=== PATIENT | female | born 1985 | race American Indian/Alaskan Native ===

== ENCOUNTER 2018-01-07 23:10 | Outpatient (CLI) | payer MEDICAID ==
[2018-01-08] MEDS ORDERED: LACTATED RINGERS 500 ML IV ONE (00:01)
[2018-01-08] MEDS ORDERED: LACTATED RINGERS 1,000 ML IV ONE (00:02)
[2018-01-08 01:18] VITALS: BP 113/64
[2018-01-08 01:56] LABS: Amorphous Crystals,Urine Few; Bilirubin,Urine NEG (Negative); Blood,Urine NEG (Negative); Color,Urine Straw (Yellow); Protein,Urine <15 mg/dL mg/dL (Negative); Urobilinogen,Urine < 2.0 mg/dL (<2.0); WBC,Urine < 1.0 /HPF (0.0-6.0)
[2018-01-08] MEDS ORDERED: VISTARIL PO ONE (03:02)
== END 2018-01-08 03:30 | disposition home or self-care (01) ==
LOC: TRG 23:10
PROVIDERS: ATTEND Obstetrics & Gynecology
DX: O26.893 Other specified pregnancy related conditions, third trimester (principal); Z3A.38 38 weeks gestation of pregnancy; R10.2 Pelvic and perineal pain
CPT/HCPCS: 59025; 81001; 96360; J7120; Q0177

== ENCOUNTER 2022-02-21 11:24 | Emergency (ER) | payer MEDICAID ==
[2022-02-21] MEDS ORDERED: ASPIRIN 325 MG TAB PO ONE (11:48)
[2022-02-21] MEDS ORDERED: SODIUM CHLORIDE 0.9% 1000 ML 1,000 ML IV ONE (12:28)
[2022-02-21] MEDS ORDERED: KETOROLAC 30 MG/1 ML INJ IV ONE (12:40)
--- NOTE | 2022-02-21 12:45 | Emergency Department Report ---
ED Chest Pain HPI - General Chief Complaint: Chest Pain Stated Complaint: CHEST PAIN Time Seen by Provider: 02/21/22 12:25 Source: patient Mode of arrival: Stretcher Limitations: No Limitations - History of Present Illness Initial Comments: 36-year female with a past medical history of obesity presents to the hospital complaints of intermittent right-sided chest pain since yesterday. Pain described as a pressure that was constant yesterday but today is intermittent. Pain worse with movement and palpation. Associated shortness of breath and lightheadedness. Patient denies nausea, vomiting, diaphoresis, calf tenderness, leg edema, history of PE/DVT, or recent travel. Patient does have a IUD Mirena in place and does not have menstrual cycles. She denies smoking, cocaine use, and denies family history of CAD in her parents or siblings - Related Data Previous Rx's Medication Instructions Recorded Last Taken Type Ibuprofen [Motrin] 800 mg PO Q8HR PRN #20 tablet 02/21/22 Unknown Rx Allergies Allergy/AdvReac Type Severity Reaction Status Date / Time No Known Allergies Allergy Verified 02/21/22 11:47 Heart Score - HEART Score History: Slightly suspicious EKG: Normal Age: < 45 Risk factors: 1-2 risk factors Troponin: < normal limit HEART Score: 1 - EKG Read Time Time EKG Completed: 15:25 EKG Read Time: 15:30 ED Review of Systems ROS: Stated complaint: CHEST PAIN Other details as noted in HPI Comment: All other systems reviewed and negative ED Past Medical Hx - Past Medical History Hx Hypertension: No Hx Diabetes: No Hx Deep Vein Thrombosis: No Hx Renal Disease: No Hx Sickle Cell Disease: No Hx Seizures: No Hx Asthma: No Hx HIV: No - Social History Smoking Status: Former Smoker - Medications Home Medications: Home Medications Medication Instructions Recorded Confirmed Last Taken Type Ibuprofen [Motrin] 800 mg PO Q8HR PRN #20 tablet 02/21/22 Unknown Rx ED Physical Exam - General Limitations: No Limitations - Other Other exam information: General: No acute distress Head: Atraumatic Eyes: normal appearance ENT: Moist mucous membranes Neck: Normal appearance, no midline tenderness Chest: Clear to auscultation bilaterally, reproducible sternal and right anterior chest wall tenderness to palpation CV: Regular rate and rhythm Abdomen: Soft, normal bowel sounds, nontender, nondistended, no rebound or guarding Back: Normal inspection Extremity: Normal inspection, full range of motion, no calf tenderness or leg edema Neuro: Alert O x 3, no facial asymmetry, speech clear, no gross motor sensory deficit Psych: Appropriate behavior Skin: No rash ED Course Vital Signs 02/21/22 02/21/22 02/21/22 11:46 13:09 13:11 Temperature 98.0 F Pulse Rate 61 60 50 L Respiratory 18 Rate Blood Pressure Blood Pressure 92/60 110/56 [Left] O2 Sat by Pulse 98 98 Oximetry 02/21/22 02/21/22 13:30 14:00 Temperature Pulse Rate 53 L 53 L Respiratory 14 16 Rate Blood Pressure 110/57 110/71 Blood Pressure [Left] O2 Sat by Pulse 97 97 Oximetry VIMAL score - Vimal Score Age > 65: (0) No Aspirin use within the Past 7 Days: (0) No 3 or more CAD Risk Factors: (0) No 2 or more Angina events in past 24 hrs: (0) No Known CAD with more than 50% Stenosis: (0) No Elevated Cardiac Markers: (0) No ST Deviation Greater than 0.5mm: (0) No VIMAL Score: 0 ED Medical Decision Making - Lab Data Result diagrams: 02/21/22 12:55 02/21/22 12:55 Lab Results 02/21/22 02/21/22 02/21/22 Range/Units 12:55 12:55 12:55 WBC 6.1 (4.5-11.0) K/mm3 RBC 4.61 (3.65-5.03) M/mm3 Hgb 12.3 (10.1-14.3) gm/dl Hct 39.2 (30.3-42.9) % MCV 85 (79-97) fl MCH 27 L (28-32) pg MCHC 31 (30-34) % RDW 13.8 (13.2-15.2) % Plt Count 184 (140-440) K/mm3 Lymph % (Auto) 29.3 (13.4-35.0) % Faulk % (Auto) 9.5 H (0.0-7.3) % Eos % (Auto) 4.4 H (0.0-4.3) % Baso % (Auto) 0.7 (0.0-1.8) % Lymph # (Auto) 1.8 (1.2-5.4) K/mm3 Faulk # (Auto) 0.6 (0.0-0.8) K/mm3 Eos # (Auto) 0.3 (0.0-0.4) K/mm3 Baso # (Auto) 0.0 (0.0-0.1) K/mm3 Seg Neutrophils % 56.1 (40.0-70.0) % Seg Neutrophils # 3.4 (1.8-7.7) K/mm3 PT 13.4 (12.2-14.9) Sec. INR 0.92 (0.87-1.13) D-Dimer 295.67 H (0-234) ng/mlDDU Sodium 141 (137-145) mmol/L Potassium 4.1 (3.6-5.0) mmol/L Chloride 105.7 (98-107) mmol/L Carbon Dioxide 27 (22-30) mmol/L Anion Gap 12 mmol/L BUN 7 (7-17) mg/dL Creatinine 0.7 (0.6-1.2) mg/dL Estimated GFR > 60 ml/min BUN/Creatinine Ratio 10 % Glucose 88 (65-100) mg/dL Calcium 9.2 (8.4-10.2) mg/dL Total Bilirubin 0.40 (0.1-1.2) mg/dL AST 14 (5-40) units/L ALT 16 (7-56) units/L Alkaline Phosphatase 51 (35-129) units/L Troponin T < 0.010 (0.00-0.029) ng/mL Total Protein 6.8 (6.3-8.2) g/dL Albumin 4.1 (3.9-5) g/dL Albumin/Globulin Ratio 1.5 % HCG, Quant (0-4) mIU/mL Urine Color (Yellow) Urine Turbidity (Clear) Specific [place] (Man) (1.003-1.030) Ur Protein (Man) (Negative) mg/dL Ur Ketones (Man) (Negative) Urine Bilirubin (Man) (Negative) Urine WBC (Auto) (0.0-6.0) /HPF Urine RBC (Auto) (0.0-6.0) /HPF U Epithel Cells (Auto) (0-13.0) /HPF Urine RBC (Manual) (Negative) Urine Mucus /HPF Urine Opiates Screen Urine Methadone Screen Ur Barbiturates Screen Ur Phencyclidine Scrn Ur Amphetamines Screen U Benzodiazepines Scrn Urine Cocaine Screen U Marijuana (THC) Screen Drugs of Abuse Note 02/21/22 02/21/22 02/21/22 Range/Units 12:55 14:15 14:15 WBC (4.5-11.0) K/mm3 RBC (3.65-5.03) M/mm3 Hgb (10.1-14.3) gm/dl Hct (30.3-42.9) % MCV (79-97) fl MCH (28-32) pg MCHC (30-34) % RDW (13.2-15.2) % Plt Count (140-440) K/mm3 Lymph % (Auto) (13.4-35.0) % Faulk % (Auto) (0.0-7.3) % Eos % (Auto) (0.0-4.3) % Baso % (Auto) (0.0-1.8) % Lymph # (Auto) (1.2-5.4) K/mm3 Faulk # (Auto) (0.0-0.8) K/mm3 Eos # (Auto) (0.0-0.4) K/mm3 Baso # (Auto) (0.0-0.1) K/mm3 Seg Neutrophils % (40.0-70.0) % Seg Neutrophils # (1.8-7.7) K/mm3 PT (12.2-14.9) Sec. INR (0.87-1.13) D-Dimer (0-234) ng/mlDDU Sodium (137-145) mmol/L Potassium (3.6-5.0) mmol/L Chloride (98-107) mmol/L Carbon Dioxide (22-30) mmol/L Anion Gap mmol/L BUN (7-17) mg/dL Creatinine (0.6-1.2) mg/dL Estimated GFR ml/min BUN/Creatinine Ratio % Glucose (65-100) mg/dL Calcium (8.4-10.2) mg/dL Total Bilirubin (0.1-1.2) mg/dL AST (5-40) units/L ALT (7-56) units/L Alkaline Phosphatase (35-129) units/L Troponin T (0.00-0.029) ng/mL Total Protein (6.3-8.2) g/dL Albumin (3.9-5) g/dL Albumin/Globulin Ratio % HCG, Quant < 2 (0-4) mIU/mL Urine Color Straw (Yellow) Urine Turbidity Clear (Clear) Specific [place] (Man) 1.005 (1.003-1.030) Ur Protein (Man) <30 mg dl (Negative) mg/dL Ur Ketones (Man) Negative (Negative) Urine Bilirubin (Man) Negative (Negative) Urine WBC (Auto) 2.0 (0.0-6.0) /HPF Urine RBC (Auto) 1.0 (0.0-6.0) /HPF U Epithel Cells (Auto) < 1.0 (0-13.0) /HPF Urine RBC (Manual) Negative (Negative) Urine Mucus Few /HPF Urine Opiates Screen Negative Urine Methadone Screen Negative Ur Barbiturates Screen Negative Ur Phencyclidine Scrn Negative Ur Amphetamines Screen Negative U Benzodiazepines Scrn Negative Urine Cocaine Screen Negative U Marijuana (THC) Screen Negative Drugs of Abuse Note Disclamer - EKG Data -: EKG Interpreted by Mt EKG shows normal: sinus rhythm, ST-T waves (no stemi) Rate: bradycardia (55) - Radiology Data Radiology results: report reviewed CTA CHEST WITH CONTRAST INDICATION / CLINICAL INFORMATION: chest pain, IUD, mild ddimer elevation. TECHNIQUE: Axial CT images were obtained through the chest after injection of 100 cc of Omnipaque 350 IV contrast. 3 plane MIP and/or 3D reconstructions were produced. All CT scans at this location are performed using CT dose reduction for ALARA by means of automated exposure control. COMPARISON: None available. FINDINGS: PULMONARY ARTERIES: No pulmonary emboli. THORACIC AORTA: No significant abnormality. HEART: No significant abnormality. CORONARY ARTERY CALCIFICATION: None. MEDIASTINUM / JOSE: No significant abnormality. PLEURA: No pleural effusion. No pneumothorax. LUNGS: No focal infiltrate is seen. There are 3 tiny nodules which appear to be along the minor fissure on the right. Measure up to 4 mm ADDITIONAL FINDINGS: None. UPPER ABDOMEN: No acute findings. SKELETAL STRUCTURES: No significant osseous abnormality. IMPRESSION: 1. No CT evidence for pulmonary embolism. 2. Multiple incidental pulmonary nodule(s) in the right middle lobe measuring 4 x 4 mm with perifissural/subpleural characteristics. Recommendation according to Fleischner Society 2017 Guidelines: Guidelines do not apply: patient younger than 35 years. Persons under the age of 35 should not receive follow-up unless there is a known primary cancer. CHEST 1 VIEW 02/21/2022 12:26 PM INDICATION / CLINICAL INFORMATION: CHEST PAIN. COMPARISON: None available. FINDINGS: SUPPORT DEVICES: None. HEART / MEDIASTINUM: No significant abnormality. LUNGS / PLEURA: No significant pulmonary or pleural abnormality. No pneumothorax. ADDITIONAL FINDINGS: No significant additional findings. IMPRESSION: No acute abnormality. - Medical Decision Making 36-year female presents to the hospital with reproducible anterior sternal and right-sided chest tenderness on palpation. Patient has a low heart score, normal EKG with exception of bradycardia. Also patient has a troponin with atypical pain. D-dimer elevation noted. CT angiogram negative for pulmonary embolism but incidental finding of pulmonary nodule. Patient informed. Copy of CAT scan provided for outpatient follow-up. Patient will be discharged with NSAIDs for muscle skeletal chest pain. Critical Care Time: No Critical care attestation.: If time is entered above; I have spent that time in minutes in the direct care of this critically ill patient, excluding procedure time. ED Disposition Clinical Impression: Chest wall pain, Pulmonary nodule Disposition: 01 HOME / SELF CARE / HOMELESS Is pt being admited?: No Does the pt Need Aspirin: No Condition: Stable Instructions: Chest Wall Pain, [id number], Pulmonary Nodule, [id number] Additional Instructions: Take the medication as prescribed. Follow-up with your doctor or doctor/clinic provided. Return if symptoms worsen as indicated by your discharge instructions. Prescriptions: Ibuprofen [Motrin] 800 mg PO Q8HR PRN #20 tablet PRN Reason: Pain , Severe (7-10) Referrals: ALYSSA PETTIT MD [Primary Care Provider] - 3-5 Days [facility] [Provider Group] - 3-5 Days Time of Disposition: 16:13
--- NOTE | 2022-02-21 12:57 | XRay Report ---
CHEST 1 VIEW 02/21/2022 12:26 PM INDICATION / CLINICAL INFORMATION: CHEST PAIN. COMPARISON: None available. FINDINGS: SUPPORT DEVICES: None. HEART / MEDIASTINUM: No significant abnormality. LUNGS / PLEURA: No significant pulmonary or pleural abnormality. No pneumothorax. ADDITIONAL FINDINGS: No significant additional findings. IMPRESSION: No acute abnormality. Signer Name: Jacky Shah MD Signed: 02/21/2022 12:53 PM Workstation Name: [email or web address]
[2022-02-21 13:11] LABS: Basophils % (Auto) 0.7 % (0.0-1.8); Eosinophils # (Auto) 0.3 K/mm3 (0.0-0.4); Eosinophils % (Auto) 4.4 % (0.0-4.3); Hematocrit 39.2 % (30.3-42.9); Hemoglobin 12.3 gm/dl (10.1-14.3); Lymphocytes # (Auto) 1.8 K/mm3 (1.2-5.4); Lymphocytes % (Auto) 29.3 % (13.4-35.0); Mean Corpuscular HGB Conc 31 % (30-34); Mean Corpuscular Volume 85 fl (79-97); Monocytes # (Auto) 0.6 K/mm3 (0.0-0.8); Monocytes % (Auto) 9.5 % (0.0-7.3); Platelet Count 184 K/mm3 (140-440); Red Blood Count 4.61 M/mm3 (3.65-5.03); Red Cell Distribution Width 13.8 % (13.2-15.2)
[2022-02-21 13:19] LABS: INR 0.92 (0.87-1.13)
[2022-02-21 13:34] LABS: Alanine Aminotransferase 16 units/L (7-56); Albumin 4.1 g/dL (3.9-5); Blood Urea Nitrogen 7 mg/dL (7-17); Calcium 9.2 mg/dL (8.4-10.2); Hemolysis Index 4
[2022-02-21 13:37] LABS: BUN/Creatinine Ratio 10
[2022-02-21 14:16] VITALS: BP 110/71
[2022-02-21 14:33] LABS: Mucus,Urine FEW /HPF
[2022-02-21 14:38] LABS: Amphetamine Screen,Urine Negative; Benzodiazepines Screen,Urine Negative; Cannabinoid Screen,Urine Negative; Cocaine Screen,Urine Negative; Methadone Screen,Urine Negative; Opiate Screen,Urine Negative
[2022-02-21 14:39] LABS: Color,Urine Straw (Yellow)
--- NOTE | 2022-02-21 15:53 | Cat Scan Report ---
CTA CHEST WITH CONTRAST INDICATION / CLINICAL INFORMATION: chest pain, IUD, mild ddimer elevation. TECHNIQUE: Axial CT images were obtained through the chest after injection of 100 cc of Omnipaque 350 IV contrast. 3 plane MIP and/or 3D reconstructions were produced. All CT scans at this location are performed using CT dose reduction for ALARA by means of automated exposure control. COMPARISON: None available. FINDINGS: PULMONARY ARTERIES: No pulmonary emboli. THORACIC AORTA: No significant abnormality. HEART: No significant abnormality. CORONARY ARTERY CALCIFICATION: None. MEDIASTINUM / JOSE: No significant abnormality. PLEURA: No pleural effusion. No pneumothorax. LUNGS: No focal infiltrate is seen. There are 3 tiny nodules which appear to be along the minor fissu re on the right. Measure up to 4 mm ADDITIONAL FINDINGS: None. UPPER ABDOMEN: No acute findings. SKELETAL STRUCTURES: No significant osseous abnormality. IMPRESSION: 1. No CT evidence for pulmonary embolism. 2. Multiple incidental pulmonary nodule(s) in the right middle lobe measuring 4 x 4 mm with perifissu ral/subpleural characteristics. Recommendation according to Fleischner Society 2017 Guidelines: Guide lines do not apply: patient younger than 35 years. Persons under the age of 35 should not receive fol low-up unless there is a known primary cancer. Signer Name: Mariano Cabral MD Signed: 02/21/2022 3:49 PM Workstation Name: [id number]
--- NOTE | 2022-02-23 09:45 | Electrocardiograph Report ---
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
== END 2022-02-21 17:49 | disposition home or self-care (01) ==
LOC: ED 11:24
DX: R07.89 Other chest pain (principal); Z87.891 Personal history of nicotine dependence; Z79.899 Other long term (current) drug therapy; R91.1 Solitary pulmonary nodule
CPT/HCPCS: 36415; 71045; 71275; 80053; 80307; 81001; 84484; 84702; 85025; 85379; 85610; 93005; 96361; 96374; 99285; J1885; J7030; Q9967